=== PATIENT | female | born 1940 | race Caucasian/White ===

== ENCOUNTER 2017-06-17 17:11 | Emergency (ER) | payer MEDICARE, OTHER ==
[2017-06-17] MEDS ORDERED: Sodium Chloride 0.9% 10 ML Syringe FLUSH PRN (17:26)
[2017-06-17] MEDS ORDERED: Diltiazem 25 MG/5 ML SDV IVPUSH ONE ×2 (17:27→18:50)
[2017-06-17] MEDS ORDERED: Heparin Sodium 5,000 Units/ML Vial IVPUSH ONE (17:27)
[2017-06-17] MEDS ORDERED: Aspirin 81 MG Tab.Chew PO ONE (17:30)
[2017-06-17] MEDS ORDERED: Sodium Chloride 0.9% 1,000 ML IV SCH (17:30)
--- NOTE | 2017-06-17 17:32 | EDM.PDOC ---
<OfficerDylan - Last Filed: 06/17/17 17:29> ED HPI GENERAL MEDICAL PROBLEM - General Chief Complaint: Chest Pain Stated Complaint: CHEST TIGHTNESS Time Seen by Provider: 06/17/17 17:26 Source of Information: Reports: Patient, Family, RN Notes Reviewed History Limitations: Reports: No Limitations - History of Present Illness INITIAL COMMENTS - FREE TEXT/NARRATIVE: 76-year-old female presents emergency department day complaint of chest pressure she states it never had this before he came on 1-1/2 hours prior on initial evaluation she was found to be atrial fibrillation at heart rate of 170 to 180 she denies any nausea vomiting no diaphoresis no dyspnea - Related Data Allergies Allergy/AdvReac Type Severity Reaction Status Date / Time codeine Allergy Headache Verified 06/17/17 17:23 Home Meds: Home Meds Calcium Carbonate [Calcium] 600 mg PO DAILY 06/17/17 [History] Cholecalciferol (Vitamin D3) [Vitamin D] 2,000 unit PO DAILY 06/17/17 [History] Estropipate 1.25 mg PO DAILY 06/17/17 [History] Fesoterodine Fumarate [Toviaz] 4 mg PO DAILY 06/17/17 [History] Levothyroxine 125 mcg PO BEDTIME 06/17/17 [History] Sertraline HCl 50 mg PO DAILY 06/17/17 [History] Triamterene/Hydrochlorothiazid [Triamterene-HCTZ 37.5-25 MG] 1 tab PO DAILY [History] atorvaSTATin [Lipitor] 40 mg PO BEDTIME 06/17/17 [History] predniSONE 20 mg PO DAILY 06/17/17 [History] Past Medical History Cardiovascular History: Reports: High Cholesterol Endocrine/Metabolic History: Reports: Hypothyroidism Social & Family History - Tobacco Use Smoking Status *Q: Never Smoker ED ROS GENERAL - Review of Systems Review Of Systems: See Below Constitutional: Reports: No Symptoms Respiratory: Reports: No Symptoms Cardiovascular: Reports: Chest Pain, Palpitations GI/Abdominal: Reports: No Symptoms : Reports: No Symptoms ED EXAM, GENERAL - Physical Exam Exam: See Below Exam Limited By: No Limitations General Appearance: Alert, Mild Distress Throat/Mouth: Normal Inspection, Normal Lips, Normal Teeth, Normal Gums, Normal Oropharynx, Normal Voice, No Airway Compromise Head: Atraumatic, Normocephalic Neck: Normal Inspection, Supple, Non-Tender, Full Range of Motion Respiratory/Chest: No Respiratory Distress, Lungs Clear, Normal Breath Sounds, No Accessory Muscle Use Cardiovascular: Tachycardia GI/Abdominal: Soft, Non-Tender Course - Vital Signs Last Recorded V/S: Last Vital Signs Temp 95.8 F 06/17/17 17:34 Pulse 141 H 06/17/17 19:08 Resp 17 06/17/17 17:34 BP 135/83 06/17/17 19:08 Pulse Ox 96 06/17/17 17:34 - Orders/Labs/Meds Orders: Active Orders 24 hr Category Date Time Status Cardiac Monitoring [RC] .As Directed Care 06/17/17 17:26 Active EKG Documentation Completion [RC] ASDIRECTED Care 06/17/17 17:27 Active EKG Documentation Completion [RC] ASDIRECTED Care 06/17/17 19:35 Active Peripheral IV Care [RC] . DIRECTED Care 06/17/17 17:27 Active Chest 1V Frontal [CR] Stat Exams 06/17/17 17:27 Taken Peripheral IV Insertion Adult [OM.PC] Stat Oth 06/17/17 17:26 Ordered EKG 12 Lead [EK] Routine Ther 06/17/17 19:35 Ordered EKG 12 Lead [EK] Stat Ther 06/17/17 17:27 Ordered Labs: Laboratory Tests 06/17/17 06/17/17 06/17/17 Range/Units 17:38 17:38 17:38 WBC 11.5 H (4.5-11.0) K/uL RBC 5.15 (3.30-5.50) M/uL Hgb 15.0 (12.0-15.0) g/dL Hct 44.5 (36.0-48.0) % MCV 86 (80-98) fL MCH 29 (27-31) pg MCHC 34 (32-36) % Plt Count 242 (150-400) K/uL Neut % (Auto) 76 H (36-66) % Lymph % (Auto) 13 L (24-44) % [place] % (Auto) 10 H (2-6) % Eos % (Auto) 1 L (2-4) % Baso % (Auto) 0 (0-1) % PT 9.8 (9.5-12.0) sec INR 0.92 (0.80-1.20) APTT 22.8 L (27.0-36.0) sec Sodium 139 L (140-148) mmol/L Potassium 3.1 L (3.6-5.2) mmol/L Chloride 102 (100-108) mmol/L Carbon Dioxide 31 (21-32) mmol/L Anion Gap 9.1 (5.0-14.0) mmol/L BUN 26 H (7-18) mg/dL Creatinine 1.1 H (0.6-1.0) mg/dL Est Cr Clr Drug Dosing 43.20 mL/min Estimated GFR (MDRD) 48 L (>60) Glucose 143 H (74-106) mg/dL Calcium 9.4 (8.5-10.1) mg/dL Phosphorus 3.4 (2.5-4.9) mg/dL Magnesium 2.3 (1.8-2.4) mg/dL Total Bilirubin 0.5 (0.2-1.0) mg/dL AST 27 (15-37) U/L ALT 45 (12-78) U/L Alkaline Phosphatase 67 (46-116) U/L CK-MB (CK-2) 6.4 H* (0-3.6) mg/mL Troponin I < 0.017 (0.000-0.056) ng/mL Total Protein 6.7 (6.4-8.2) g/dL Albumin 3.4 (3.4-5.0) g/dL Globulin 3.3 (2.3-3.5) g/dL Albumin/Globulin Ratio 1.0 L (1.2-2.2) TSH, Ultra Sensitive (0.358-3.740) uIU/mL 06/17/17 Range/Units 17:38 WBC (4.5-11.0) K/uL RBC (3.30-5.50) M/uL Hgb (12.0-15.0) g/dL Hct (36.0-48.0) % MCV (80-98) fL MCH (27-31) pg MCHC (32-36) % Plt Count (150-400) K/uL Neut % (Auto) (36-66) % Lymph % (Auto) (24-44) % [place] % (Auto) (2-6) % Eos % (Auto) (2-4) % Baso % (Auto) (0-1) % PT (9.5-12.0) sec INR (0.80-1.20) APTT (27.0-36.0) sec Sodium (140-148) mmol/L Potassium (3.6-5.2) mmol/L Chloride (100-108) mmol/L Carbon Dioxide (21-32) mmol/L Anion Gap (5.0-14.0) mmol/L BUN (7-18) mg/dL Creatinine (0.6-1.0) mg/dL Est Cr Clr Drug Dosing mL/min Estimated GFR (MDRD) (>60) Glucose (74-106) mg/dL Calcium (8.5-10.1) mg/dL Phosphorus (2.5-4.9) mg/dL Magnesium (1.8-2.4) mg/dL Total Bilirubin (0.2-1.0) mg/dL AST (15-37) U/L ALT (12-78) U/L Alkaline Phosphatase (46-116) U/L CK-MB (CK-2) (0-3.6) mg/mL Troponin I (0.000-0.056) ng/mL Total Protein (6.4-8.2) g/dL Albumin (3.4-5.0) g/dL Globulin (2.3-3.5) g/dL Albumin/Globulin Ratio (1.2-2.2) TSH, Ultra Sensitive 1.697 (0.358-3.740) uIU/mL Meds: Medications Discontinued Medications Generic Name Dose Route Start Last Admin Trade Name Freq PRN Reason Stop Dose Admin Aspirin 324 mg 06/17/17 17:30 06/17/17 17:42 Aspirin PO 06/17/17 17:31 324 mg ONETIME ONE Administration Diltiazem HCl 20 mg 06/17/17 17:27 06/17/17 17:43 Diltiazem IVPUSH 06/17/17 17:28 20 mg ONETIME ONE Administration Diltiazem HCl 20 mg 06/17/17 18:50 06/17/17 19:08 Diltiazem IVPUSH 06/17/17 18:51 20 mg ONETIME ONE Administration Heparin Sodium (Porcine) 4,000 units 06/17/17 17:27 06/17/17 17:54 Heparin Sodium IVPUSH 06/17/17 17:28 4,000 units ONETIME ONE Administration Sodium Chloride 1,000 mls @ 125 mls/hr 06/17/17 17:30 06/17/17 17:47 Normal Saline IV 125 mls/hr ASDIRECTED PEPE Administration Propofol Confirm 06/17/17 19:37 Diprivan 20 Ml Administered 06/17/17 19:38 Dose 200 mg .ROUTE .STK-MED ONE Sodium Chloride 10 ml 06/17/17 17:26 Saline Flush FLUSH ASDIRECTED PRN Keep Vein Open Departure - Departure Disposition: Home, Self-Care 01 Clinical Impression: Atrial fibrillation with rapid ventricular response Instructions: Atrial Fibrillation, [id number] Referrals: PCP,None [Primary Care Provider] - Forms: ED Department Discharge Care Plan Goals: Recheck after you return home. Return to ER if symptoms recur or you develop other concerns. - My Orders Last 24 Hours: My Active Orders 06/17/17 19:35 EKG Documentation Completion [RC] ASDIRECTED EKG 12 Lead [EK] Routine - Assessment/Plan Last 24 Hours: My Active Orders 06/17/17 19:35 EKG Documentation Completion [RC] ASDIRECTED EKG 12 Lead [EK] Routine <Filipe Kauffman - Last Filed: 06/17/17 22:11> ED HPI GENERAL MEDICAL PROBLEM Chest Pain Score (Numeric/FACES): 2 Course - Re-Assessments/Exams Free Text/Narrative Re-Assessment/Exam: 06/17/17 19:34 Care accepted from Officer. With the assistance of anesthesia, the patient was given 80 mg of propofol IV, converted with 200 J of synchronized cardioversion. It was successful and the patient did well. A postprocedure EKG showed normal sinus rhythm. 06/17/17 19:52 Patient remained in sinus rhythm for the next 30 minutes and felt fine. 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 She can return sooner if symptoms recur or she has other concerns. Departure - Departure Time of Disposition: 20:07 Condition: Good - My Orders Last 24 Hours: My Active Orders 06/17/17 19:35 EKG Documentation Completion [RC] ASDIRECTED EKG 12 Lead [EK] Routine - Assessment/Plan Last 24 Hours: My Active Orders 06/17/17 19:35 EKG Documentation Completion [RC] ASDIRECTED EKG 12 Lead [EK] Routine
[2017-06-17 19:08] VITALS: BP 135/83
[2017-06-17] MEDS ORDERED: Propofol 200 MG/20 ML SDV ONE (19:37)
--- NOTE | 2017-06-18 08:25 | CR ---
Chest 1V Frontal INDICATION: Chest Pain COMPARISON: None FINDINGS: Single view of the chest obtained shows normal heart size. No infiltrate or pleural effu rakesh. No signs of pulmonary edema. IMPRESSION: Negative single view of the chest.
== END 2017-06-17 20:07 | disposition home or self-care (01) ==
LOC: JP.ED 17:11
DX: I48.91 Unspecified atrial fibrillation (principal); E78.00 Pure hypercholesterolemia, unspecified; E03.9 Hypothyroidism, unspecified; Z88.5 Allergy status to narcotic agent; Z79.899 Other long term (current) drug therapy
CPT/HCPCS: 36415; 71010; 80053; 82553; 83735; 84100; 84443; 84484; 85025; 85610; 85730; 92960; 93005; 93010; 96361; 96374; 96375; 99285; A9270; J1644; J2704; J3490; J7040